=== PATIENT | male | born 1965 | race Caucasian/White ===

== ENCOUNTER 2016-12-22 09:33 | Emergency (ER) | payer OTHER ==
[2016-12-22 09:34] VITALS: BMI 27.6
[2016-12-22 09:36] VITALS: O2SAT 98
[2016-12-22] MEDS ORDERED: Naproxen 550 mg Tab PO STA (09:50)
--- NOTE | 2016-12-22 09:52 | C.PDOC ---
History Of Present Illness 51 y/o male pmhx psoriasis, diabetes, HTN, high cholesterol presents to the ED with complaints of pain to right arm x8 days, extending from elbow to the hand, mostly with movement. Pt states pain is achy, sometimes sharp with tingling to the fingers. Pt admits to doing house work but no other strenuous work or activities. Pt has not taken any medications for the pain. Pt is also complaining of pain to the right 2nd and 3rd toes for the past several months with occasional pain to the bottom of the foot. Denies trauma, chest pain, SOB or any other complaints. Time Seen by Provider: 12/22/16 09:42 Chief Complaint (Nursing): Upper Extremity Problem/Injury History Per: Patient History/Exam Limitations: no limitations Onset/Duration Of Symptoms: Days Quality: Dull, Aching Severity: Moderate Exacerbating Factor(s): Movement Recent travel outside of the [place]: No Past Medical History Reviewed: Historical Data, Nursing Documentation, Vital Signs Vital Signs: Last Vital Signs Temp 98.1 F 12/22/16 09:52 Pulse 71 12/22/16 09:52 Resp 18 12/22/16 09:52 BP 111/73 12/22/16 09:52 Pulse Ox 98 12/22/16 10:22 - Medical History PMH: HTN, Hypercholesterolemia Surgical History: Back Surgery Family History: States: Unknown Family Hx - Social History Hx Alcohol Use: No Hx Substance Use: No - Immunization History Hx Tetanus Toxoid Vaccination: No Hx Influenza Vaccination: No Hx Pneumococcal Vaccination: No Review Of Systems Constitutional: Negative for: Fever Cardiovascular: Negative for: Chest Pain Respiratory: Negative for: Shortness of Breath Gastrointestinal: Negative for: Vomiting Musculoskeletal: Positive for: Other (right arm pain, tingling to right fingers , pain to bottom right foot, pain to 2nd and 3rd right toes) Skin: Negative for: Rash Physical Exam - Physical Exam Appears: Non-toxic, No Acute Distress Skin: Warm, Dry, No Rash Head: Atraumatic Extremity: Normal ROM, Tenderness (tenderness to right ulnar nerve and tendons from elbow to forearm; tenderness to 2nd and 3rd right toes with extension, tenderness to plantar surface right foot), No Calf Tenderness, Capillary Refill (<2 seconds), No Swelling, Other Pulses: Left Radial: Normal, Right Radial: Normal, Left Dorsalis Pedis: Normal, Right Dorsalis Pedis: Normal Neurological/Psych: Oriented x3, Normal Speech, Normal Motor, Normal Sensation ED Course And Treatment O2 Sat by Pulse Oximetry: 98 (room air) Pulse Ox Interpretation: Normal Medical Decision Making Medical Decision Making: Dx tendonitis muskuloskeletal Treat with naproxen. Instructed to follow up with PMD for further evaluation/ pain management. Disposition Counseled Patient/Family Regarding: Diagnosis, Need For Followup, Rx Given - Disposition Referrals: Clinic,Med Surg [Non-Staff] - Disposition: HOME/ ROUTINE Disposition Time: 09:51 Condition: IMPROVED Additional Instructions: Mr Willoughby, thank you for letting us take care of you today. Your provider was Dr. Sexton. You were treated for Muscularskeletal / Tendon pain/strain. The emergency medical care you received today was directed at your acute symptoms. If you were prescribed any medication, please fill it and take as directed. It may take several days for your symptoms to resolve. Return to the Emergency Department if your symptoms worsen, do not improve, or if you have any other problems. Please contact your doctor or call one of the physicians/clinics you have been referred to that are listed on the Patient Visit Information form that is included in your discharge packet. Bring any paperwork you were given at discharge with you along with any medications you are taking to your follow up visit. Our treatment cannot replace ongoing medical care by a primary care provider (PCP) outside of the emergency department. Thank you for allowing the [facility] team to be part of your care today. If you had an X-Ray or CT scan: A Radiologist will review the ED reading if any change in treatment is needed we will contact you. If you had a blood, urine, or wound culture: It will take several days for the results, if any change in treatment is needed we will contact you. If you had an STI test: It will take 48 hours for the results. Please call after 1 week if you have not heard back. Prescriptions: Naproxen 500 mg PO BID PRN #30 tab PRN Reason: Muscle Spasm Instructions: Muscle Strain (ED), Tendinitis (ED) Forms: Gen Discharge Inst [place] Print Language: PERSIAN - POA Present On Arrival: None - Clinical Impression Clinical Impression: Tendonitis, Muscle strain - Scribe Statement The provider has reviewed the documentation as recorded by the Iliana Miranda Provider Attestation: All medical record entries made by the Iliana were at my direction and personally dictated by me. I have reviewed the chart and agree that the record accurately reflects my personal performance of the history, physical exam, medical decision making, and the department course for this patient. I have also personally directed, reviewed, and agree with the discharge instructions and disposition.
[2016-12-22 09:59] VITALS: BP 111/73; PULSE 71; RESP 18; TEMP 98.1
== END 2016-12-22 10:00 | disposition home or self-care (01) ==
LOC: C.ER 09:33
DX: S46.811A Strain of other muscles, fascia and tendons at shoulder and upper arm level, right arm, initial encounter (principal); X50.0XXA Overexertion from strenuous movement or load, initial encounter; Y93.89 Activity, other specified; Y92.89 Other specified places as the place of occurrence of the external cause; M77.8 Other enthesopathies, not elsewhere classified